=== PATIENT | male | born 1990 | race Caucasian/White ===

== ENCOUNTER 2021-02-16 11:02 | Emergency (ER) | payer OTHER ==
[~2021-02-16] VITALS: Ht 185.4 cm; Wt 113.4 kg
[2021-02-16 11:17] VITALS: BP 143/90
--- NOTE | 2021-02-16 11:19 | NUR ---
pt [facility] c/c eval s/p fall. pt was at work and tripped over a piece of metal on floor. denies loc. denies head neck or back pain. gcs 15.
[2021-02-16 11:31] VITALS: BP 132/81
--- NOTE | 2021-02-16 11:36 | NUR ---
Patient discharged with v/s stable. Written and verbal after care instructions given and explained. Patient verbalized understanding. Ambulatory with steady gait. All questions addressed prior to discharge. Advised to follow up with PMD.
== END 2021-02-16 11:36 | disposition home or self-care (01) ==
LOC: MED 11:02
DX: S09.90XA Unspecified injury of head, initial encounter (principal); R56.9 Unspecified convulsions; W19.XXXA Unspecified fall, initial encounter; Y93.89 Activity, other specified; Y92.89 Other specified places as the place of occurrence of the external cause; Y99.8 Other external cause status
CPT/HCPCS: 99283